=== PATIENT | female | born 1990 | race Two or more races ===

== ENCOUNTER 2017-07-27 16:13 | Outpatient (CLI) | payer OTHER | END 2017-07-27 16:20 | disposition home or self-care (01) | LOC: RAD 501 16:13 | DX: M25.571 Pain in right ankle and joints of right foot (principal) ==

== ENCOUNTER 2018-10-12 10:57 | Outpatient (CLI) | payer OTHER | END 2018-10-12 11:56 | disposition home or self-care (01) | LOC: RX STUDY 10:57 | DX: N84.0 Polyp of corpus uteri (principal) ==

== ENCOUNTER 2020-03-19 14:45 | Inpatient (IN) | payer OTHER ==
[~2020-03-19] VITALS: Ht 160 cm; Wt 91.6 kg
[2020-04-10] MEDS ORDERED: PRENATAL TABLE1 EAC1 PO (06:10)
== END 2020-04-12 13:58 | DRG 807 ==
LOC: LDR 04-10 05:17 → OB/GYN 04-10 05:17
PROVIDERS: ADMIT Obstetrics & Gynecology; ATTEND Obstetrics & Gynecology
PROC: 10E0XZZ Delivery of Products of Conception, External Approach (ICD-10-PCS; principal; 2020-04-10)
PROC: 0KQM0ZZ Repair Perineum Muscle, Open Approach (ICD-10-PCS; 2020-04-10)
PROC: 4A0HXFZ Measurement of Products of Conception, Cardiac Rhythm, External Approach (ICD-10-PCS; 2020-04-10)
DX: O70.1 Second degree perineal laceration during delivery (principal); Z37.0 Single live birth; Z3A.40 40 weeks gestation of pregnancy

== ENCOUNTER 2020-04-05 07:37 | Outpatient (CLI) | payer OTHER | END 2020-04-05 09:40 | disposition home or self-care (01) | LOC: NST 07:37 | PROVIDERS: ATTEND Obstetrics & Gynecology Maternal & Fetal Medicine | DX: Z34.83 Encounter for supervision of other normal pregnancy, third trimester (principal) ==

== ENCOUNTER 2021-09-04 07:07 | Outpatient (CLI) | payer OTHER ==
[~2021-09-04 07:07] MED LIST: PRENATAL TABLE1 EAC1 PO
== END 2021-09-04 07:15 | disposition home or self-care (01) ==
LOC: SONOGRAMA 07:07
PROVIDERS: ATTEND Obstetrics & Gynecology
DX: N63.21 Unspecified lump in the left breast, upper outer quadrant (principal); N63.12 Unspecified lump in the right breast, upper inner quadrant

== ENCOUNTER 2022-04-03 13:21 | Outpatient (CLI) | payer OTHER | END 2022-04-03 13:26 | disposition home or self-care (01) | LOC: PPH VACUNA 13:21 | PROVIDERS: ATTEND Emergency Medicine Pediatric Emergency Medicine | DX: Z23 Encounter for immunization (principal) ==

== ENCOUNTER 2022-10-14 08:08 | Outpatient (CLI) | payer OTHER | END 2022-10-14 08:16 | disposition home or self-care (01) | LOC: SONOGRAMA 08:08 | DX: K80.00 Calculus of gallbladder with acute cholecystitis without obstruction (principal); R10.0 Acute abdomen ==

== ENCOUNTER 2024-03-08 10:38 | Outpatient (CLI) | payer OTHER | END 2024-03-08 10:39 | disposition home or self-care (01) | LOC: PRENATAL 10:38 | PROVIDERS: ATTEND Obstetrics & Gynecology Maternal & Fetal Medicine | DX: O36.80X0 Pregnancy with inconclusive fetal viability, not applicable or unspecified (principal); O30.90 Multiple gestation, unspecified, unspecified trimester; O99.891 Other specified diseases and conditions complicating pregnancy; O09.529 Supervision of elderly multigravida, unspecified trimester; O34.40 Maternal care for other abnormalities of cervix, unspecified trimester; O09.819 Supervision of pregnancy resulting from assisted reproductive technology, unspecified trimester; Z3A.08 8 weeks gestation of pregnancy ==

== ENCOUNTER 2024-03-24 10:34 | Outpatient (CLI) | payer OTHER | END 2024-03-24 10:36 | disposition home or self-care (01) | LOC: PRENATAL 10:34 | PROVIDERS: ATTEND Obstetrics & Gynecology Maternal & Fetal Medicine | DX: Z76.1 Encounter for health supervision and care of foundling (principal) ==

== ENCOUNTER 2024-04-11 09:05 | Outpatient (CLI) | payer OTHER ==
[~2024-04-11 09:05] MED LIST changes: +CEPHALEXIN500 M1 PO
== END 2024-04-11 09:06 | disposition home or self-care (01) ==
LOC: PRENATAL 09:05
PROVIDERS: ATTEND Obstetrics & Gynecology Maternal & Fetal Medicine
DX: O36.80X0 Pregnancy with inconclusive fetal viability, not applicable or unspecified (principal); Z36.82 Encounter for antenatal screening for nuchal translucency; O30.90 Multiple gestation, unspecified, unspecified trimester; O99.891 Other specified diseases and conditions complicating pregnancy; O09.529 Supervision of elderly multigravida, unspecified trimester; O34.40 Maternal care for other abnormalities of cervix, unspecified trimester; O09.819 Supervision of pregnancy resulting from assisted reproductive technology, unspecified trimester; Z3A.13 13 weeks gestation of pregnancy

== ENCOUNTER → 2024-08-29 | Outpatient (CLI) | payer OTHER | END | disposition home or self-care (01) | LOC: NST 10:09 | PROVIDERS: ATTEND Obstetrics & Gynecology | DX: Z3A.33 33 weeks gestation of pregnancy (principal) ==

== ENCOUNTER 2024-10-04 01:14 | Inpatient (IN) | payer OTHER ==
[~2024-10-04] VITALS: Ht 157.5 cm; Wt 89.4 kg
[2024-10-04] VITALS (7 sets, daily range): BP systolic 105–127; BP diastolic 60–82; O2SAT 100
[2024-10-04] MEDS ORDERED: HYDROXYCHLOROQ200 MG PO (01:47)
[2024-10-04 01:51] LABS: HEMATOCRIT 38.3 % (36.0-45.00); MEAN CELL VOLUME 92.6 fL (80.00-100.00); MEAN CORPUSCULAR HEMOGLOBIN 31.3 pg (27.00-32.0); MEAN CORPUSCULAR HGB CONC 33.8 g/dl (32.0-36.0); PLATELET COUNT 248 K/uL (150-450); RED BLOOD COUNT 4.13 M/uL (4.00-6.00); RED CELL DISTRIBUTION WIDTH 14.2 % (11.5-14.5)
[2024-10-04 02:20] LABS: ALBUMIN 2.9 gm/dL (3.4-5.0); BILIRUBIN TOTAL 0.35 mg/dL (0.3-1.2); CALCIUM 9.1 mg/dL (8.5-10.1); GFR 140.4; POTASSIUM 3.8 mEq/L (3.5-5.1); TOTAL PROTEIN 6.9 gm/dL (6.4-8.2)
[2024-10-04 02:21] LABS: CREATININE SERUM 0.5 mg/dL (0.55-1.02); INR < 0.93; PARTIAL THROMBOPLASTIN TIME 28.9 SECONDS (22.0-34.0); PROTHROMBIN TIME 10.1 SECONDS (9.0-11.5)
[2024-10-04] MEDS ORDERED: RINGERS SOLUTION,LACTATED 1,000 ML IV SCH (02:45)
[2024-10-04] MEDS ORDERED: MORPHINE SULFATE 4 MG/ML VIAL IV ONE (04:45)
[2024-10-04] MEDS ORDERED: OXYTOCIN 20 UNITS/1000ML RL PIGGYBAG IV ONE (06:15)
[2024-10-04] MEDS ORDERED: ERYTHROMYCIN BASE OPHT 1GM EACH TUBE OP ONE (06:15)
[2024-10-04] MEDS ORDERED: CHLORHEXIDINE GLUCONATE 120 ML BOTTLE TOP ONE (06:16)
[2024-10-04] MEDS ORDERED: LIDOCAINE HCL 1% 10ML VIAL ONE (06:16)
[2024-10-04] MEDS ORDERED: CHLORHEXIDINE GLUCONATE 120 ML BOTTLE TOP SCH (07:30)
[2024-10-04] MEDS ORDERED: OXYTOCIN 1,000 ML IV SCH (07:30)
[2024-10-04] MEDS ORDERED: OxyCODONE HCL 5 MG TABLET (ROXICODONE) PO SCH (08:00)
[2024-10-04] MEDS ORDERED: KETOROLAC TROMETHAMINE 10 MG TABLET PO SCH (12:00)
[2024-10-05 00:59] VITALS: BP 109/69
[2024-10-05 08:21] VITALS: BP 110/75
[2024-10-05 15:47] VITALS: BP 108/75
[2024-10-06 00:21] VITALS: BP 109/70
[2024-10-06] MEDS ORDERED: KETO10TA2 PO (07:51)
[2024-10-06 08:00] VITALS: BP 118/80
== END 2024-10-06 13:45 | disposition home or self-care (01) | DRG 807 ==
LOC: LDR 01:14 → OB/GYN 01:14 → LDR 01:47 → OB/GYN 10:25
PROVIDERS: ADMIT Obstetrics & Gynecology Maternal & Fetal Medicine; ATTEND Obstetrics & Gynecology Maternal & Fetal Medicine
PROC: 10E0XZZ Delivery of Products of Conception, External Approach (ICD-10-PCS; principal; 2024-10-04)
PROC: 0KQM0ZZ Repair Perineum Muscle, Open Approach (ICD-10-PCS; 2024-10-04)
PROC: 4A1HXCZ Monitoring of Products of Conception, Cardiac Rate, External Approach (ICD-10-PCS; 2024-10-04)
DX: O70.1 Second degree perineal laceration during delivery (principal); O69.81X0 Labor and delivery complicated by cord around neck, without compression, not applicable or unspecified; Z37.0 Single live birth; Z3A.38 38 weeks gestation of pregnancy